=== PATIENT | female | born 1960 | race American Indian/Alaskan Native ===

== ENCOUNTER 2022-03-24 09:18 | Day surgery (SDC) | payer OTHER ==
[~2022-03-24 09:18] MED LIST: Lactated Ringers 1,000 ML IV SCH
[2022-03-24] MEDS ORDERED: Lidocaine 2% 5 ML SDV ONE (11:22)
[2022-03-24] MEDS ORDERED: fentaNYL 100 MCG/2 ML SDV ONE (11:22)
[2022-03-24] MEDS ORDERED: Propofol 200 MG/20 ML SDV ONE (11:22)
[2022-03-24] MEDS ORDERED: Lactated Ringers 1,000 ML IV SCH (12:15)
== END 2022-03-24 12:58 | disposition home or self-care (01) ==
LOC: MW.SDS 09:18
PROVIDERS: ATTEND Surgery
DX: Z12.11 Encounter for screening for malignant neoplasm of colon (principal); I10 Essential (primary) hypertension; E66.9 Obesity, unspecified; Z88.8 Allergy status to other drugs, medicaments and biological substances; Z87.891 Personal history of nicotine dependence; Z80.0 Family history of malignant neoplasm of digestive organs; Z86.010 Personal history of colon polyps; Z98.890 Other specified postprocedural states
CPT/HCPCS: 45378; J2704; J3010; J7120; 00812